=== PATIENT | male | born 1965 | race Two or more races ===

== ENCOUNTER 2024-10-18 01:51 | Inpatient (IN) | payer MEDICAID ==
[~2024-10-18] VITALS: Ht 162.6 cm; Wt 77.6 kg
[2024-10-18] MEDS: ACETAMINOPHEN 325 MG TABLET PO ONE (02:00)
[2024-10-18] MEDS: ALBUTEROL FS 2.5 MG/0.5 ML VIAL.NEB NEB ONE (02:17)
[2024-10-18] MEDS: IPRATROPIUM NEB FS 0.5 MG/2.5 ML AMPUL.NEB NEB ONE (02:17)
[2024-10-18 02:18] VITALS: O2SAT 92
[2024-10-18] MEDS ORDERED: methylPREDNISolone SOD SUCC 125 MG/2ML VIAL ONE ×2 (02:18→07:58)
[2024-10-18] MEDS ORDERED: ACETAMINOPHEN 325 MG TABLET ONE (02:18)
[2024-10-18 02:19] LABS: EOSINOPHILS % (AUTO) 0.3 % (0.0-6.0); LYMPHOCYTES # (AUTO) 0.5 K/uL (0.8-4.8); MONOCYTES # (AUTO) 1.2 K/uL (0.1-1.30)
[2024-10-18] MEDS ORDERED: IPRATROPIUM NEB FS 0.5 MG/2.5 ML AMPUL.NEB ONE (02:19)
[2024-10-18] MEDS ORDERED: ALBUTEROL FS 2.5 MG/3 ML VIAL.NEB ONE (02:19)
[2024-10-18 02:28] VITALS: O2SAT 99
[2024-10-18 02:29] LABS: BASOPHILS # (AUTO) 0.2 K/uL (0.0-0.2); BASOPHILS % (AUTO) 1.1 % (0.0-2.0); HEMATOCRIT 30 % (39-51); HEMOGLOBIN 9.7 g/dL (13.5-17.5); LYMPHOCYTES % (AUTO) 3.5 % (20.0-44.0); MEAN CORPUSCULAR HEMOGLOBIN 30 PG (26.0-33.0); MEAN CORPUSCULAR HGB CONC 33 g/dl (31.0-36.0); MEAN CORPUSCULAR VOLUME 91 fL (80-96); MONOCYTES % (AUTO) 8.2 % (2.0-12.0); NEUTROPHILS # (AUTO) 12.5 K/uL (1.8-8.9); NEUTROPHILS % (AUTO) 86.9 % (43.0-81.0); PLATELET COUNT (AUTO) 396 K/uL (150-450); RED BLOOD CELL COUNT(AUTO) 3.25 MIL/uL (4.5-6.0); RED CELL DISTRIBUTION WIDTH 15.6 % (11.5-15.0); WHITE BLOOD COUNT (AUTO) 14.3 K/uL (4.3-11.0)
[2024-10-18] MEDS: methylPREDNISolone SOD SUCC 125 MG/2ML VIAL IV ONE (02:30)
[2024-10-18 02:34] LABS: CALCIUM, SERUM 8.4 mg/dL (8.5-10.1); CARBON DIOXIDE 25 mmol/L (21-32); CHLORIDE 109 mmol/L (98-107); CREATININE 4.7 mg/dL (0.6-1.3); GLUCOSE 208 mg/dL (74-106); POTASSIUM 5.3 mmol/L (3.5-5.1); SODIUM SERUM 140 mmol/L (136-145); UREA NITROGEN, BLOOD 78 mg/dL (7-18)
[2024-10-18 02:35] LABS: INR 0.98 (0.91-1.10); PARTIAL THROMBOPLASTIN TIME 27.1 SEC (24.3-34.3); PROTHROMBIN TIME 10.4 SECS (9.2-11.1)
[2024-10-18 02:40] VITALS: O2SAT 99
[2024-10-18 02:52] LABS: ALANINE AMINOTRANSFERASE 33 U/L (12-78); ALBUMIN 2.4 g/dL (3.4-5.0); ALKALINE PHOSPHATASE 166 U/L (46-116); ASPARTATE AMINOTRANSFERASE 47 U/L (15-37); BILIRUBIN,DIRECT 0.1 mg/dL (0.0-0.2); BILIRUBIN,TOTAL 0.3 mg/dL (0.2-1.0); LACTIC ACID 0.8 mmol/L (0.4-2.0); TOTAL PROTEIN, SERUM 7.1 g/dL (6.4-8.2)
[2024-10-18] MEDS: FUROSEMIDE 40 MG/4 ML VIAL IV ONE (03:00)
[2024-10-18] MEDS: CALCIUM CHLORIDE 1,000 MG/10 ML DISP.SYRIN IV ONE (03:00)
[2024-10-18] MEDS ORDERED: VANCOMYCIN 1 GM /D5W 250 ML PB IV ONE (03:02)
[2024-10-18] MEDS ORDERED: FUROSEMIDE 20 MG/2 ML VIAL ONE (03:02)
[2024-10-18] MEDS ORDERED: CEFEPIME 1 GM VIAL ONE (03:02)
[2024-10-18] MEDS ORDERED: CALCIUM CHLORIDE 1,000 MG/10 ML DISP.SYRIN ONE (03:03)
[2024-10-18 03:09] LABS: APPEARANCE,URINE CLEAR (CLEAR); BILIRUBIN,URINE NEGATIVE (NEGATIVE); BLOOD, URINE 3+ Ery/uL (NEGATIVE); COLOR,URINE YELLOW (YELLOW); KETONES,URINE NEGATIVE (NEGATIVE); LEUKOCYTE ESTERASE ,URINE NEGATIVE (NEGATIVE); NITRITE, URINE NEGATIVE (NEGATIVE); PROTEIN,URINE 3+ mg/dl (NEGATIVE); UGLUCOSE 1+ mg/dL (NEGATIVE); UROBILINOGEN,URINE 0.2 EU/dL (0.2)
[2024-10-18] MEDS: CEFEPIME 1 GM in IV D5W 50 ML IV ONE ×2 (03:13→09:35)
[2024-10-18 03:27] LABS: WBC,URINE 0-2 /HPF (0-3)
[2024-10-18 03:28] LABS: ADD URINE CULTURE YES; BACTERIA,URINE 2+ /HPF (None Seen); COARSE GRANULAR CASTS,URINE Few /LPF (None Seen)
[2024-10-18] MEDS: ASPIRIN 325 MG TABLET PO ONE (03:30)
[2024-10-18] MEDS: VANCOMYCIN 1 GM in IV D5W 250 ML IV ONE (03:32)
[2024-10-18] MEDS ORDERED: ASPIRIN 325 MG TABLET ONE (03:35)
[2024-10-18] MEDS ORDERED: Z GUARD REMEDY 4 OZ OINT TP PRN (04:00)
[2024-10-18] MEDS ORDERED: ACETAMINOPHEN 325 MG TABLET PO PRN (04:00)
[2024-10-18] MEDS ORDERED: MAGNESIUM HYDROXIDE 30 ML UDC PO PRN (04:00)
[2024-10-18] MEDS ORDERED: MAG HYDROX/AL HYDROX/SIMETH 30 ML UDC PO PRN (04:00)
[2024-10-18] MEDS ORDERED: ONDANSETRON HCL/PF 4 MG/2 ML VIAL IVP PRN (04:00)
[2024-10-18] MEDS ORDERED: hydrALAZINE HCL IV 20 MG VIAL ONE (05:22)
[2024-10-18] MEDS: hydrALAZINE HCL IV 20 MG VIAL IV ONE (05:25)
[2024-10-18 06:15] LABS: BASOPHILS % (AUTO) 0.3 % (0.0-2.0); HEMATOCRIT 28 % (39-51); HEMOGLOBIN 9.1 g/dL (13.5-17.5); LYMPHOCYTES # (AUTO) 0.4 K/uL (0.8-4.8); LYMPHOCYTES % (AUTO) 3.2 % (20.0-44.0); MEAN CORPUSCULAR HEMOGLOBIN 29 PG (26.0-33.0); MEAN CORPUSCULAR HGB CONC 33 g/dl (31.0-36.0); MEAN CORPUSCULAR VOLUME 90 fL (80-96); MONOCYTES # (AUTO) 0.3 K/uL (0.1-1.30); MONOCYTES % (AUTO) 2.3 % (2.0-12.0); NEUTROPHILS # (AUTO) 10.9 K/uL (1.8-8.9); NEUTROPHILS % (AUTO) 94.2 % (43.0-81.0); PLATELET COUNT (AUTO) 344 K/uL (150-450); RED CELL DISTRIBUTION WIDTH 15.3 % (11.5-15.0); WHITE BLOOD COUNT (AUTO) 11.5 K/uL (4.3-11.0)
[2024-10-18 06:40] LABS: CALCIUM, SERUM 8.8 mg/dL (8.5-10.1); CREATININE 4.6 mg/dL (0.6-1.3); MAGNESIUM 2.8 mg/dL (1.8-2.4); PHOSPHORUS 5.5 mg/dL (2.5-4.9); POTASSIUM 4.9 mmol/L (3.5-5.1)
[2024-10-18] MEDS: VANCOMYCIN 0.75 GM in IV D5W 250 ML IV SCH (07:52)
[2024-10-18] MEDS: methylPREDNISolone SOD SUCC 125 MG/2ML VIAL IV SCH (08:00)
[2024-10-18] MEDS ORDERED: PANTOPRAZOLE 40 MG VIAL ONE (09:26)
[2024-10-18] MEDS ORDERED: ASPIRIN EC 81 MG TABLET.DR PO ONE (09:27)
[2024-10-18] MEDS: PANTOPRAZOLE 40 MG VIAL IV SCH (09:35)
[2024-10-18] MEDS: ASPIRIN 81 MG TAB.CHEW PO SCH (09:35)
[2024-10-18 16:00] VITALS: BP 155/75; TEMP 97.7; O2SAT 98
[2024-10-18] MEDS ORDERED: DEXTROSE 50%-WATER 50 ML DISP.SYRIN IV PRN (17:00)
[2024-10-18] MEDS: FUROSEMIDE 40 MG/4 ML VIAL IV SCH (17:16)
[2024-10-18] MEDS: BLOOD SUGAR DIAGNOSTIC 1 EACH STRIP VI SCH (17:55)
[2024-10-18] MEDS: INSULIN REGULAR, HUMAN 100 UNIT/ML 3 ML VIAL SQ PRN (17:56)
[2024-10-18 20:00] VITALS: BP 152/75; TEMP 98.2; O2SAT 98
[2024-10-19 07:12] LABS: BASOPHILS % (AUTO) 0.1 % (0.0-2.0); HEMATOCRIT 27 % (39-51); HEMOGLOBIN 9.1 g/dL (13.5-17.5); LYMPHOCYTES # (AUTO) 0.8 K/uL (0.8-4.8); LYMPHOCYTES % (AUTO) 5.9 % (20.0-44.0); MEAN CORPUSCULAR HEMOGLOBIN 30 PG (26.0-33.0); MEAN CORPUSCULAR HGB CONC 33 g/dl (31.0-36.0); MEAN CORPUSCULAR VOLUME 91 fL (80-96); NEUTROPHILS # (AUTO) 11.5 K/uL (1.8-8.9); PLATELET COUNT (AUTO) 349 K/uL (150-450); RED BLOOD CELL COUNT(AUTO) 3.02 MIL/uL (4.5-6.0); RED CELL DISTRIBUTION WIDTH 14.9 % (11.5-15.0); WHITE BLOOD COUNT (AUTO) 14.3 K/uL (4.3-11.0)
[2024-10-19 07:35] LABS: ERYTHROCYTE SEDIMENTATION RATE 101 MM/HR (0-20)
[2024-10-19 07:54] LABS: ALBUMIN 1.9 g/dL (3.4-5.0); BILIRUBIN,TOTAL 0.1 mg/dL (0.2-1.0); CALCIUM, SERUM 8.4 mg/dL (8.5-10.1); CREATININE 4.6 mg/dL (0.6-1.3); MAGNESIUM 2.7 mg/dL (1.8-2.4); PHOSPHORUS 6.7 mg/dL (2.5-4.9); POTASSIUM 4.7 mmol/L (3.5-5.1); TOTAL PROTEIN, SERUM 6.4 g/dL (6.4-8.2)
[2024-10-19 08:30] VITALS: BP 161/75; TEMP 98.5; O2SAT 100
[2024-10-19] MEDS: CEFEPIME 2 GM in IV D5W 100 ML IV SCH (08:45)
[2024-10-19] MEDS ORDERED: CEFEPIME 1 GM in IV D5W 50 ML IV SCH (09:00)
[2024-10-19 09:07] LABS: HBSAG SCREEN Negative (Negative); HEPATITIS A AB, IgM Negative (Negative); HEPATITIS B CORE AB, IgM Negative (Negative); RAPID PLASMA REAGIN QUAL. Non Reactive (Non Reactive)
[2024-10-19 12:51] LABS: HIV-1 p24 ANTIGEN NON REACTIVE (NONREACTIVE); HIV-1/2 ANTIBODY REACTIVE (NONREACTIVE)
[2024-10-19 13:00] VITALS: BP 180/88; TEMP 98.4; O2SAT 97
[2024-10-19 16:00] VITALS: BP 175/80; TEMP 98.4; O2SAT 97
[2024-10-19] MEDS: FUROSEMIDE 40 MG/4 ML VIAL IV SCH (16:33)
[2024-10-19 20:00] VITALS: BP_SYST 150; BP_SYST 182; BP_DIAS 85; TEMP 97.7; O2SAT 100
[2024-10-19] MEDS: *INSULIN REGULAR(HUMULIN R)HUM 100 UNIT/ML VIAL SQ PRN (21:53)
[2024-10-19 23:09] LABS: CHLAMYDIA TRACHOMATIS NAA Negative (Negative); NEISSERIA GONORRHOEAE NAA Negative (Negative)
[2024-10-20] VITALS (11 sets, daily range): BP systolic 146–192; BP diastolic 67–93; TEMP 97.7–98.6; O2SAT 91–98
[2024-10-20] MEDS: ALBUTEROL FS 2.5 MG/0.5 ML VIAL.NEB NEB PRN (03:15)
[2024-10-20] MEDS: IPRATROPIUM NEB FS 0.5 MG/2.5 ML AMPUL.NEB NEB PRN (03:15)
[2024-10-20 06:08] LABS: PTH, INTACT 54 pg/mL (15-65)
[2024-10-20 07:10] LABS: HEPATITIS B SURFACE AB Reactive (.)
[2024-10-20 07:28] LABS: BASOPHILS # (AUTO) 0.1 K/uL (0.0-0.2); BASOPHILS % (AUTO) 0.6 % (0.0-2.0); EOSINOPHILS % (AUTO) 0.1 % (0.0-6.0); HEMATOCRIT 31 % (39-51); HEMOGLOBIN 10.1 g/dL (13.5-17.5); LYMPHOCYTES % (AUTO) 7.6 % (20.0-44.0); MEAN CORPUSCULAR HEMOGLOBIN 30 PG (26.0-33.0); MEAN CORPUSCULAR HGB CONC 33 g/dl (31.0-36.0); MEAN CORPUSCULAR VOLUME 91 fL (80-96); MONOCYTES # (AUTO) 1.7 K/uL (0.1-1.30); MONOCYTES % (AUTO) 12.5 % (2.0-12.0); NEUTROPHILS # (AUTO) 10.9 K/uL (1.8-8.9); NEUTROPHILS % (AUTO) 79.2 % (43.0-81.0); PLATELET COUNT (AUTO) 360 K/uL (150-450); RED BLOOD CELL COUNT(AUTO) 3.37 MIL/uL (4.5-6.0); RED CELL DISTRIBUTION WIDTH 15.4 % (11.5-15.0); WHITE BLOOD COUNT (AUTO) 13.7 K/uL (4.3-11.0)
[2024-10-20 07:39] LABS: CALCIUM, SERUM 8.4 mg/dL (8.5-10.1); CREATININE 4.2 mg/dL (0.6-1.3); MAGNESIUM 2.4 mg/dL (1.8-2.4); PHOSPHORUS 4.9 mg/dL (2.5-4.9); POTASSIUM 4.6 mmol/L (3.5-5.1)
[2024-10-20 08:11] LABS: COMPLEMENT C3, SERUM 117 mg/dL (82-167); COMPLEMENT C4, SERUM 45 mg/dL (12-38)
[2024-10-20] MEDS: PANTOPRAZOLE 40 MG TABLET.DR PO SCH (09:13)
[2024-10-20] MEDS: INSULIN GLARGINE, 100 UNIT/ML CARTRIDGE SQ SCH (09:14)
[2024-10-20 10:00] LABS: BASOPHILS # (AUTO) 0.1 K/uL (0.0-0.2); BASOPHILS % (AUTO) 0.6 % (0.0-2.0); EOSINOPHILS % (AUTO) 0.1 % (0.0-6.0); HEMATOCRIT 30 % (39-51); HEMOGLOBIN 9.5 g/dL (13.5-17.5); MEAN CORPUSCULAR HEMOGLOBIN 29 PG (26.0-33.0); MEAN CORPUSCULAR HGB CONC 32 g/dl (31.0-36.0); MEAN CORPUSCULAR VOLUME 91 fL (80-96); MONOCYTES # (AUTO) 1.7 K/uL (0.1-1.30); MONOCYTES % (AUTO) 15.3 % (2.0-12.0); NEUTROPHILS # (AUTO) 8.3 K/uL (1.8-8.9); PLATELET COUNT (AUTO) 315 K/uL (150-450); RED BLOOD CELL COUNT(AUTO) 3.27 MIL/uL (4.5-6.0); RED CELL DISTRIBUTION WIDTH 14.7 % (11.5-15.0); WHITE BLOOD COUNT (AUTO) 11.1 K/uL (4.3-11.0)
[2024-10-20 10:09] LABS: CREATININE 4.1 mg/dL (0.6-1.3); POTASSIUM 4.2 mmol/L (3.5-5.1)
[2024-10-20 10:15] LABS: ALBUMIN 1.8 g/dL (3.4-5.0); BILIRUBIN,TOTAL 0.1 mg/dL (0.2-1.0); TOTAL PROTEIN, SERUM 6.1 g/dL (6.4-8.2)
[2024-10-20 11:01] LABS: LYMPHOCYTES % (MANUAL) 9 % (16-48); MONOCYTES % (MANUAL) 15 % (0-11.0); NEUTROPHILS % (MANUAL) 76 (42-76); PLATELET ESTIMATE ADEQUATE
[2024-10-20] MEDS: TRAZODONE 50 MG TABLET PO ONE (23:45)
[2024-10-20] MEDS: hydrALAZINE HCL IV 20 MG VIAL IV PRN (23:50)
[2024-10-21 05:05] VITALS: O2SAT 94
[2024-10-21 05:18] VITALS: O2SAT 98
[2024-10-21 07:00] VITALS: BP 162/73; TEMP 98.2; O2SAT 98
[2024-10-21 08:11] LABS: BASOPHILS % (AUTO) 0.3 % (0.0-2.0); EOSINOPHILS % (AUTO) 0.2 % (0.0-6.0); HEMATOCRIT 29 % (39-51); HEMOGLOBIN 9.4 g/dL (13.5-17.5); LYMPHOCYTES # (AUTO) 1.1 K/uL (0.8-4.8); LYMPHOCYTES % (AUTO) 13.7 % (20.0-44.0); MEAN CORPUSCULAR HEMOGLOBIN 30 PG (26.0-33.0); MEAN CORPUSCULAR HGB CONC 33 g/dl (31.0-36.0); MEAN CORPUSCULAR VOLUME 90 fL (80-96); MONOCYTES # (AUTO) 1.2 K/uL (0.1-1.30); MONOCYTES % (AUTO) 14.1 % (2.0-12.0); NEUTROPHILS # (AUTO) 5.9 K/uL (1.8-8.9); NEUTROPHILS % (AUTO) 71.7 % (43.0-81.0); PLATELET COUNT (AUTO) 293 K/uL (150-450); RED BLOOD CELL COUNT(AUTO) 3.18 MIL/uL (4.5-6.0); RED CELL DISTRIBUTION WIDTH 14.9 % (11.5-15.0); WHITE BLOOD COUNT (AUTO) 8.3 K/uL (4.3-11.0)
[2024-10-21 08:45] LABS: ALBUMIN 1.5 g/dL (3.4-5.0); BILIRUBIN,TOTAL 0.1 mg/dL (0.2-1.0); CALCIUM, SERUM 7.7 mg/dL (8.5-10.1); CREATININE 3.7 mg/dL (0.6-1.3); POTASSIUM 3.8 mmol/L (3.5-5.1); TOTAL PROTEIN, SERUM 5.8 g/dL (6.4-8.2)
[2024-10-21 16:00] VITALS: BP_SYST 116; BP_SYST 169; BP_DIAS 64; BP_DIAS 66; TEMP 98.1; TEMP 98.6; O2SAT 98; O2SAT 99
[2024-10-21 20:03] VITALS: O2SAT 95
[2024-10-21 21:14] VITALS: BP_SYST 197; BP_SYST 97; BP_DIAS 87; TEMP 97.3; O2SAT 100
[2024-10-22] VITALS (7 sets, daily range): BP systolic 139–183; BP diastolic 46–78; TEMP 97.3–99.1; O2SAT 94–100
[2024-10-22 06:54] LABS: BASOPHILS % (AUTO) 0.3 % (0.0-2.0); EOSINOPHILS # (AUTO) 0.1 K/uL (0.0-0.7); EOSINOPHILS % (AUTO) 0.9 % (0.0-6.0); HEMATOCRIT 28 % (39-51); HEMOGLOBIN 9.4 g/dL (13.5-17.5); LYMPHOCYTES # (AUTO) 1.3 K/uL (0.8-4.8); MEAN CORPUSCULAR HEMOGLOBIN 30 PG (26.0-33.0); MEAN CORPUSCULAR HGB CONC 33 g/dl (31.0-36.0); MEAN CORPUSCULAR VOLUME 89 fL (80-96); MONOCYTES # (AUTO) 1.2 K/uL (0.1-1.30); MONOCYTES % (AUTO) 17.8 % (2.0-12.0); NEUTROPHILS # (AUTO) 4.3 K/uL (1.8-8.9); PLATELET COUNT (AUTO) 274 K/uL (150-450); RED BLOOD CELL COUNT(AUTO) 3.14 MIL/uL (4.5-6.0); RED CELL DISTRIBUTION WIDTH 14.6 % (11.5-15.0); WHITE BLOOD COUNT (AUTO) 6.9 K/uL (4.3-11.0)
[2024-10-22 07:15] LABS: ALBUMIN 1.6 g/dL (3.4-5.0); BILIRUBIN,TOTAL 0.1 mg/dL (0.2-1.0); CALCIUM, SERUM 8.4 mg/dL (8.5-10.1); CREATININE 3.4 mg/dL (0.6-1.3); POTASSIUM 3.9 mmol/L (3.5-5.1); TOTAL PROTEIN, SERUM 6.1 g/dL (6.4-8.2)
[2024-10-22] MEDS: TEMAZEPAM 7.5 MG CAPSULE PO ONE (22:44)
[2024-10-23 06:09] LABS: *SPE A/G RATIO 0.7 (0.7-1.7); *SPE ALBUMIN 2.4 g/dL (2.9-4.4); *SPE ALPHA-1-GLOBULIN 0.3 g/dL (0.0-0.4); *SPE ALPHA-2-GLOBULIN 0.9 g/dL (0.4-1.0); *SPE BETA GLOBULIN 1.2 g/dL (0.7-1.3); *SPE GLOBULIN, TOTAL 3.6 g/dL (2.2-3.9); *SPE M-SPIKE Not Observed g/dL (Not Observed); *SPEGAMMA GLOBULIN 1.2 g/dL (0.4-1.8)
[2024-10-23 07:00] VITALS: BP 164/79; TEMP 97.2; O2SAT 100
[2024-10-23 07:02] LABS: BASOPHILS % (AUTO) 0.6 % (0.0-2.0); EOSINOPHILS # (AUTO) 0.2 K/uL (0.0-0.7); EOSINOPHILS % (AUTO) 2.4 % (0.0-6.0); HEMATOCRIT 28 % (39-51); HEMOGLOBIN 9.3 g/dL (13.5-17.5); LYMPHOCYTES # (AUTO) 1.5 K/uL (0.8-4.8); LYMPHOCYTES % (AUTO) 22.6 % (20.0-44.0); MEAN CORPUSCULAR HEMOGLOBIN 30 PG (26.0-33.0); MEAN CORPUSCULAR HGB CONC 34 g/dl (31.0-36.0); MEAN CORPUSCULAR VOLUME 90 fL (80-96); MONOCYTES % (AUTO) 15.8 % (2.0-12.0); NEUTROPHILS # (AUTO) 3.8 K/uL (1.8-8.9); NEUTROPHILS % (AUTO) 58.6 % (43.0-81.0); PLATELET COUNT (AUTO) 266 K/uL (150-450); RED BLOOD CELL COUNT(AUTO) 3.08 MIL/uL (4.5-6.0); RED CELL DISTRIBUTION WIDTH 14.7 % (11.5-15.0); WHITE BLOOD COUNT (AUTO) 6.5 K/uL (4.3-11.0)
[2024-10-23 07:21] LABS: ALBUMIN 1.5 g/dL (3.4-5.0); BILIRUBIN,TOTAL 0.1 mg/dL (0.2-1.0); CREATININE 3.5 mg/dL (0.6-1.3); POTASSIUM 4.3 mmol/L (3.5-5.1); TOTAL PROTEIN, SERUM 6.1 g/dL (6.4-8.2)
[2024-10-23 13:07] LABS: *ANA ANTI-CENTROMERE B AB <0.2 AI (0.0-0.9); *ANA ANTI-DNA(DS) AB, QN <1 IU/mL (0-9); *ANA ANTI-JO-1 <0.2 AI (0.0-0.9); *ANA ANTICHROMATIN ANTIBODY <0.2 AI (0.0-0.9); *ANA RNP ANTIBODIES 0.9 AI (0.0-0.9); *ANA SJOGREN'S ANTI-SS-A <0.2 AI (0.0-0.9); *ANA SJOGREN'S ANTI-SS-B 0.6 AI (0.0-0.9); *ANAANTI-SCLERODERMA-70 AB <0.2 AI (0.0-0.9); *ANASMITH AB <0.2 AI (0.0-0.9)
[2024-10-23] MEDS ORDERED: FURO-145 PO (13:36)
[2024-10-23] MEDS ORDERED: HYDR-4076 PO (13:36)
[2024-10-23] MEDS ORDERED: ISOS30TA86 PO (13:36)
[2024-10-23 16:00] VITALS: BP 152/72; TEMP 98.8; O2SAT 100
[2024-10-23] MEDS ORDERED: DOXY100C2 PO (17:42)
[2024-10-23] MEDS ORDERED: FURO-144 PO (17:48)
[2024-10-23 20:00] VITALS: BP 166/70; TEMP 98.2; O2SAT 100
[2024-10-23] MEDS: hydrALAZINE HCL 25 MG TABLET PO SCH (21:15)
[2024-10-24 07:15] LABS: CREATININE 3.1 mg/dL (0.6-1.3); POTASSIUM 3.9 mmol/L (3.5-5.1)
[2024-10-24 08:00] VITALS: BP 198/86; TEMP 97.5; O2SAT 99
[2024-10-24] MEDS: hydrALAZINE HCL 50 MG TABLET PO ONE (09:27)
[2024-10-24] MEDS ORDERED: INSU100V28 SQ (11:11)
[2024-10-24] MEDS ORDERED: LATA2.5D15 EACHEYE (11:11)
[2024-10-24] MEDS ORDERED: Insulin Glargine,Hum SQ (11:11)
[2024-10-24] MEDS ORDERED: *INS REG SQ (11:11)
[2024-10-24 15:50] VITALS: BP 178/71; TEMP 97.9; O2SAT 100
[2024-10-25 13:09] LABS: *HIV-1 RNA BY PCR <20 copies/mL (.)
== END 2024-10-24 17:20 | disposition home or self-care (01) | DRG 720 ==
LOC: ER 01:57 → TELE 10:18 → MED 10-20 10:38
PROVIDERS: ADMIT Internal Medicine; ATTEND Nurse Practitioner Acute Care
DX: A41.9 Sepsis, unspecified organism (principal); J96.21 Acute and chronic respiratory failure with hypoxia; I21.A1 Myocardial infarction type 2; I12.0 Hypertensive chronic kidney disease with stage 5 chronic kidney disease or end stage renal disease; J15.9 Unspecified bacterial pneumonia; N17.9 Acute kidney failure, unspecified; E44.1 Mild protein-calorie malnutrition; E88.09 Other disorders of plasma-protein metabolism, not elsewhere classified; E11.319 Type 2 diabetes mellitus with unspecified diabetic retinopathy without macular edema; J90 Pleural effusion, not elsewhere classified; E11.22 Type 2 diabetes mellitus with diabetic chronic kidney disease; N18.5 Chronic kidney disease, stage 5; E78.5 Hyperlipidemia, unspecified; E87.70 Fluid overload, unspecified; H40.9 Unspecified glaucoma; Z79.4 Long term (current) use of insulin; Z91.199 Patient's noncompliance with other medical treatment and regimen due to unspecified reason; J45.909 Unspecified asthma, uncomplicated; Z20.822 Contact with and (suspected) exposure to COVID-19; J98.11 Atelectasis; Z68.29 Body mass index [BMI] 29.0-29.9, adult; E87.5 Hyperkalemia
CPT/HCPCS: 36415; 71045-TC; 71250-TC; 76770-TC; 76870-TC; 80048-TC; 80053-TC; 80076-TC; 80202-TC; 81001; 82550-TC; 82553; 82962-TC; 83605-TC; 83735-TC; 83880; 83970; 84100-TC; 84155; 84165; 84484-TC; 85025-TC; 85652-TC; 85730-TC; 86225; 86235; 86592; 86593; 86706; 86803; 87040-TC; 87086-TC; 87340; 87491; 87536; 87591; 87806; 93307-TC; 94761-TC; 94799-TC; 98960; A4223; G0378; J0360; J0692; J1815; J1940; J2470; J2919; J3370; J3490; J7060